=== PATIENT | male | born 1980 | race Caucasian/White ===

== ENCOUNTER 2016-12-20 05:11 | Emergency (ER) | payer OTHER ==
[~2016-12-20] VITALS: Ht 195.6 cm; Wt 141.8 kg
[2016-12-20 06:03] VITALS: BP 124/77; PULSE 98; RESP 22; O2SAT 97
--- NOTE | 2016-12-20 06:11 | ED.REPORT ---
HPI-Chest Pain Under 40 Date of Service Dec 20, 2016 ED Provider: The patient is a 36 year old male who is otherwise healthy who was brought to the emergency department by EMS complaining of left-sided chest pain that began at 0400 this morning when he woke up. His pain radiates into his jaw, left upper extremity, and back. He also experienced shortness of breath, dizziness, and nausea. He took 324 ASA prior to arrival. He was given nitroglycerin x2 which improved his pain from a 10 to 5. He denies abdominal pain, vomiting or lower extremity swelling. He denies family history of cardiac disease. He was started on amitriptyline and Lyrica yesterday. Nursing Notes Stated Complaint: CHEST PAIN Chief Complaint: Chest Pain Nursing Notes Reviewed: Yes Allergies: Uncoded Allergies: PENICILLIN (Allergy, Mild, 12/20/16) SULFA (Allergy, Mild, 12/20/16) Scheduled Levofloxacin (Levaquin) 750 Mg Tablet 750 MG PO DAILY General Time Seen by MD: 06:10 Chief Complaint Chest pain Hx Obtained From: Patient, EMS Arrived By: Ambulance Sudden in Onset?: Yes Onset Occurred: 1 - 4 hours ago Symptom Duration: Since onset Location: : Chest left Quality: Painful Radiation: : Back: Jaw Migration/Movement: Reports: None Severity: Current: Moderate Severity: Maximum: Moderate Recent Healthcare: No recent hospitalization, Recent doctor visit Similar Sx Previous: No Past Medical History Past Medical History Ruptured disc in September 2016 Past Surgical History Back surgery Family History Noncontributory Smoking History Never Smoker Social History Alcohol Use: "Social" Ambulatory Status Independent Review of Systems Review of Systems Note: +jaw pain Respiratory: Reports: Shortness of breath Cardiovascular: Reports: Chest pain GI: Reports: Nausea, Denies: Abdominal pain, Vomiting Musculoskeletal: Reports: Back pain, Extremity pain Neurologic: Reports: Dizziness Complete sys rev & neg: except as marked. Physical Exam Initial Vital Signs Vital Signs (First) Date Time Temp Pulse Resp B/P Pulse Ox O2 Delivery O2 Flow Rate FiO2 12/20/16 06:03 36.8 98 22 124/77 97 Room Air 12/20/16 07:07 2 Initial VS: Reviewed Head / Eyes: Atraumatic, Normocephalic, PERRL ENT: Mucous membranes moist, Conjunctiva normal, No scleral icterus Neck: Supple, Non-tender, Full range of motion Abdomen / GI: Soft, Non-tender, No guarding, No rebound, No distention Lymphatic: No lymphadenopathy Extremities: Vascular intact, Neuro intact, No swelling Skin: Warm, Dry, No cyanosis Neurologic: Alert, Oriented, Nonfocal Psychiatric: Mood/affect normal, Behavior normal, Normal thought content General/Constitutional: Awake, Alert, Well appearing Distress / Hydration: Positive: Distress moderate Respiratory / Chest: Atraumatic, Breath sounds NL, Breath sounds = bilat, No respiratory distress, No rales, No rhonchi, No wheezing Tenderness to left chest wall with palpation Cardiovascular: Regular rhythm, Heart sounds NL, No gallop, No murmurs, No rubs , Peripheral circulation NL, Pulses = bilaterally, No gross BP differential Heart Rate / Rhythm: Positive: Tachycardia (mildly) Back: No midline vertebral tend Upper Extremity / MS: No deformity, Neurologic intact, Vascular intact Left shoulder tenderness to palpation Interpretation & Diagnostics Lab Results Interpretation Result Diagram: 12/20/16 0609 12/20/16 0609 Test 12/20/16 06:09 12/20/16 08:55 White Blood Count 9.1th/mm3 (3.8-10.1) Red Blood Count 4.90mil/mm3 (4.40-5.80) Hemoglobin 14.9g/dL (13.8-17.2) Hematocrit 42.3% (41.0-50.0) Mean Corpuscular Volume 86.3fL (81-100) Mean Corpuscular Hemoglobin 30.4pg (27.0-35.0) Mean Corpuscular Hemoglobin Concent 35.2% (32.0-37.0) Red Cell Distribution Width 12.6% (12.3-15.4) Platelet Count 316bil/L (150-400) Neutrophils (%) (Auto) 67.2% (40-74) Lymphocytes (%) (Auto) 21.1% (14-46) Monocytes (%) (Auto) 9.7% (4-12) Eosinophils (%) (Auto) 1.3% (0-5) Basophils (%) (Auto) 0.2% (0-3) D-Dimer 0.7mg/L (<0.50) Sodium Level 136mEq/L (134-144) Potassium Level 3.8mEq/L (3.5-5.2) Chloride Level 95mEq/L (97-108) Carbon Dioxide Level 22mmol/L (18-29) Blood Urea Nitrogen 12mg/dL (6-20) Creatinine 1.06mg/dL (0.76-1.27) Estimat Glomerular Filtration Rate 85mL/min (>59) Glucose Level 120mg/dL (60-99) Calcium Level 9.6mg/dL (8.5-10.1) Magnesium Level 1.9mg/dL (1.6-2.6) Total Bilirubin 0.6mg/dL (0.0-1.2) Aspartate Amino Transf (AST/SGOT) 22U/L (0-50) Alanine Aminotransferase (ALT/SGPT) 23U/L (0-44) Alkaline Phosphatase 74U/L (25-150) Total Protein 7.8g/dL (6.4-8.4) Albumin 4.4g/dL (3.4-5.0) Lipase 28U/L (13-60) Hold Marie Top Tube Received (Received) Troponin T < 0.010ug/L (0.0-0.011) ECG Interpretation ECG Interpretation: Sinus tachycardia with a rate of 108 Time: 06:06 Interpreted by: ED physician ECG Interpretation: Sinus rhythm with a rate of 80 Time: 09:13 Interpreted by: ED physician X-Ray Chest Interpretation View: Portable, 1 view Interpretation / Wet Read by: Wet read ED physician NL X-Ray Chest Findings: No infiltrate, No acute disease CT Chest Interpretation IMPRESSION: 1. No pulmonary embolism. 2. Left upper lobe pneumonia. 3. Left upper lobe nodule, likely representing a focus of pneumonitis. Followup noncontrast low-dose chest CT in 3 months is recommended to confirm resolution, and to exclude underlying malignancy. Dictated by: Naveen Silva M.D. on 12/20/2016 at 8:27 Study type: CT pulm angiogram Interpretation / Wet Read by: Interpret - Radiologist Re-Eval/Medical Decision Med Decision/Clinical Course Patient presents with left-sided chest discomfort, ultimately it appears to be more clinically related to a left-sided pneumonia. Levaquin orally is chosen based on antibiotic allergies and recent hospitalization. Patient is educated about side effects of Levaquin including but not limited to tendinopathy and tendon rupture. Serial troponins, EKGs, and angiogram of the chest failed to reveal acute cardiac etiology. Extensive education discussion is given. Patient will follow up with primary care or return to the ER if worse. Source of Hx: Old records, EMS Re-Evaluation/Progress #1: Time of Eval: 07:21 Re-Evaluation/Progress Note: Rechecked the patient. Discussed plan for chest CT. Re-Evaluation/Progress #2: Time of Eval: 08:46 Re-Evaluation/Progress Note: Rechecked the patient. Discussed plan for repeat troponin and EKG. Re-Evaluation/Progress #3: Time of Eval: 09:44 Re-Evaluation/Progress Note: Rechecked the patient. Discussed results, diagnosis, and plan for discharge. All questions were addressed. Counseled Regarding: Diagnosis, Lab results, Need for follow-up, When/why to return to ED Discharge & Departure Primary Impression: Chest wall pain Additional Impression: Pneumonia Pneumonia type: due to unspecified organism Laterality: left Lung location : upper lobe of lung Qualified Code: J18.9 - Pneumonia, unspecified organism Disposition: Home Discharge Condition All VS Reviewed: Yes Condition: Stable Patient Instructions: Community-acquired Pneumonia (ED) Additional Instructions: Thank you for entrusting us with your care today. Your workup today is reassuring, there is no evidence of a heart attack or blood clot. There is evidence of a pneumonia which can be treated with antibiotics. I have prescribed you Levaquin. You will need to take this once daily. Followup with your regular doctor next week for recheck. Return to the emergency department for any new or concerning symptoms. Scribe Attestation Portions of this note were transcribed by Nikkie Fernando. I, Dr. Shannon personally performed the history, physical exam and medical decision-making; I reviewed and confirmed the accuracy of the information in the transcribed note. Signed by: Gabriela Yu, 12/20/2016 and 0950. Aamir Shannon DO Dec 20, 2016 06:11 Nikkie Fernando Dec 20, 2016 06:13
[2016-12-20 06:14] VITALS: BP 125/72
[2016-12-20 06:22] LABS: BASOPHILS % (AUTO) 0.2 % (0-3); EOSINOPHILS % (AUTO) 1.3 % (0-5); MONOCYTES % (AUTO) 9.7 % (4-12); Mean Corpuscular Hemoglobin 30.4 pg (27.0-35.0); Mean Corpuscular Volume 86.3 fL (81-100); NEUTROPHILS % (AUTO) 67.2 % (40-74); Platelet Count 316 bil/L (150-400)
[2016-12-20] MEDS ORDERED: Alum-Mag Hydrox-Simeth 30 mL Suspension PO ONE (06:25)
[2016-12-20] MEDS ORDERED: Ondansetron 2 mg/mL 2 mL Inj IVPUSH PRN (06:25)
[2016-12-20 06:48] LABS: TROPONIN T 0.01 ug/L (0.0-0.011)
[2016-12-20 07:01] LABS: Magnesium 1.9 mg/dL (1.6-2.6)
[2016-12-20 07:07] VITALS: BP 115/71; PULSE 96; RESP 17; O2SAT 96
[2016-12-20] MEDS ORDERED: Valproate Sodium Inj 1,000 MG in Dextrose 5% 100 ML IV ONE (08:15)
--- NOTE | 2016-12-20 08:33 | DRSVH ---
PROCEDURE: CT ANGIO CHEST PULMONARY EMBOLISM ([id number]) INDICATIONS: chest pain, dyspnea, tachycardia TECHNIQUE: After the administration of intravenous contrast, 2 mm thick sections acquired from the pulmonary api mir to the posterior costophrenic angles. 3-dimensional maximum intensity projection (MIP) coronal a nd sagittal reformats were then acquired through the thorax. For radiation dose reduction, the follo wing was used: automated exposure control, adjustment of mA and/or kV according to patient size. COMPARISON: [facility], CR, XR CHEST 1VW (PORTABLE), 12/20/2016, 6:11. FINDINGS: Image quality: Excellent. Pulmonary arteries: Pulmonary arteries are normal in size, and demonstrate no intraluminal filling d efects to suggest central pulmonary embolism. Lungs and pleura: There is moderate patchy airspace opacity within the left apex and left upper lobe. There is an adjacent nodular density within the lateral aspect of the left upper lobe measuring 7 mm . No pleural effusions or pneumothorax. Central and peripheral airways are patent. Mediastinum: Heart size is normal, without pericardial effusion. No mediastinal or hilar adenopathy . Thoracic aorta is normal in caliber and enhancement. Esophagus is normal in caliber, without hiat al hernia. Bones and chest wall: No suspicious bony lesions. Ribs and thoracic spine appear intact throughout. Thyroid gland is within normal limits. No axillary or supraclavicular adenopathy. Abdomen: Visualized upper abdominal solid organs appear normal in the early arterial phase of enhanc ement. IMPRESSION: 1. No pulmonary most. 2. Left upper lobe pneumonia. 3. Left upper lobe nodule, likely representing a focus of pneumonitis. Followup noncontrast low-dose chest CT in 3 months is recommended to confirm resolution, and to exclude underlying malignancy. Dictated by: Naveen Silva M.D. on 12/20/2016 at 8:27 Approved by: Naveen Silva M.D. on 12/20/2016 at 8:29
[2016-12-20] MEDS ORDERED: Ketorolac 15 mg/mL Inj IVPUSH ONE (08:45)
[2016-12-20] MEDS ORDERED: levoFLOXacin 750 mg Tablet PO ONE (09:20)
--- NOTE | 2016-12-20 09:28 | DRSVH ---
PROCEDURE: X-RAY CHEST ONE VIEW, PORTABLE ([id number]) INDICATIONS: CP TECHNIQUE: One view of the chest was acquired. COMPARISON: None. FINDINGS: Surgical changes and devices: None. Lungs and pleura: No pleural effusions or pneumothorax. Lungs are clear. Mediastinum: Mediastinal contours appear normal. Heart size is normal. Bones and chest wall: No suspicious bony lesions. Overlying soft tissues appear unremarkable. IMPRESSION: No acute cardiopulmonary disease. Dictated by: Krunal Allen [facility] Interpreted: Francy Joe MD on 12/20/2016 at 9:27 Transcribed by: RUKHSANA on 12/20/2016 at 9:27 Approved by: Francy Joe MD, PhD on 12/20/2016 at 10:54
[2016-12-20] MEDS ORDERED: LEVO750T9 PO (09:51)
[2016-12-20 10:15] VITALS: BP 110/65; PULSE 89; RESP 19; O2SAT 96
== END 2016-12-20 10:56 | disposition home or self-care (01) ==
LOC: EDBD 05:11 → SED 05:11
DX: J18.9 Pneumonia, unspecified organism (principal); Z88.0 Allergy status to penicillin; Z88.2 Allergy status to sulfonamides
CPT/HCPCS: 36415; 71010; 71275; 80053; 82948; 83690; 83735; 84484; 85025; 85379; 93005; 96374; 96375; 99285; J1885; J2270; J2405; Q9967